=== PATIENT | female | born 1975 | race Caucasian/White ===

== ENCOUNTER 2016-07-09 12:15 | Inpatient (IN) | payer MEDICARE, MEDICAID ==
[~2016-07-09] VITALS: Ht 152.4 cm; Wt 55.9 kg
[~2016-07-09 12:15] MED LIST: DOCU-30 PO; ERTA1VIA IM; ERTA1VIA IV; ESZO3TAB9 PO; FERR325T16 PO; GABA300C10 PO; HYDR-3307 PO; HYDR2TAB13 PO; LEVE500T53 PO; LEVE500V6 PO; LORA-446 PO; METR500T PO; OXYC10TA32 PO; POTA20TA14 PO; PROM25TA10 PO; SULF1TAB3 PO; VANC1VIA3 PO
[2016-07-09] MEDS ORDERED: SODIUM CHLORIDE 0.9% 1,000ML IVBOLUS ONE ×2 (14:00→16:30)
[2016-07-09] MEDS ORDERED: ONDANSETRON 2MG/ML, 2ML IVPush ONE (14:00)
[2016-07-09] MEDS ORDERED: SODIUM CHLORIDE FLUSH 10ML SYR IVF ONE (14:00)
[2016-07-09] MEDS ORDERED: FAMOTIDINE 20 MG/2 ML IVP ONE (14:00)
[2016-07-09] MEDS ORDERED: ONDANSETRON 2MG/ML, 2ML ONE (14:21)
[2016-07-09] MEDS ORDERED: HYDROmorphone 1 MG/ML, 1ML ONE ×2 (14:21→14:59)
[2016-07-09] MEDS ORDERED: FAMOTIDINE 20 MG/2 ML ONE (14:21)
[2016-07-09] MEDS: HYDROmorphone 1 MG/ML, 1ML IVPush PRN ×2 (14:24→15:09)
[2016-07-09 14:41] LABS: ASPARTATE AMINO TRANSFERASE 9 U/L (15-37); BLOOD UREA NITROGEN 11 mg/dL (7-18)
[2016-07-09] MEDS ORDERED: OMNIPAQUE 350 MG/ML, 100ML BOTTLE ONE (15:54)
[2016-07-09] MEDS ORDERED: POTASSIUM CHLORIDE 40 MEQ in SODIUM CHLORIDE 0.9% 500 ML IV ONE (16:30)
[2016-07-09] MEDS ORDERED: ONDANSETRON 2MG/ML, 2ML IVP PRN (17:00)
[2016-07-09] MEDS ORDERED: ACETAMINOPHEN 325 MG TABLET PO PRN (17:00)
[2016-07-09 17:26] VITALS: BP 129/82
[2016-07-09] MEDS ORDERED: KETOROLAC 30 MG/1 ML IVPush PRN (18:00)
[2016-07-09] MEDS: ENOXAPARIN 40 MG/0.4 ML SQ SCH (18:00)
[2016-07-09] MEDS ORDERED: HYDROmorphone 1 MG/ML, 1ML IV ONE (18:45)
[2016-07-09] MEDS: FAMOTIDINE 20 MG/2 ML IV SCH (20:00)
[2016-07-09] MEDS: LEVETIRACETAM 500 MG TABLET PO SCH (20:00)
[2016-07-09] MEDS: GABAPENTIN 300 MG CAPSULE PO SCH (20:00)
[2016-07-09] MEDS: D5%-0.45NACL+KCL 20MEQ 1,000 ML IV SCH (20:15)
[2016-07-09] MEDS: PROMETHAZINE 25 MG/ML, 1ML IM PRN (20:15)
[2016-07-09 20:17] VITALS: BP 104/68
[2016-07-09 20:21] VITALS: BP 104/68
[2016-07-09] MEDS ORDERED: OXYC5TAB3 PO (21:07)
[2016-07-09] MEDS ORDERED: ZOLP5TAB PO (21:07)
[2016-07-09] MEDS ORDERED: OXYcodone IR 5MG TABLET PO PRN (21:30)
[2016-07-09] MEDS: ZOLPIDEM 5MG TABLET PO PRN (22:32)
[2016-07-10 02:04] VITALS: BP 114/77
[2016-07-10] MEDS: PROMETHAZINE 25 MG/ML, 1ML IM PRN ×3 (05:25→23:16)
[2016-07-10] MEDS: D5%-0.45NACL+KCL 20MEQ 1,000 ML IV SCH ×3 (05:25→22:54)
[2016-07-10 05:33] LABS: BLOOD UREA NITROGEN 4 mg/dL (7-18)
[2016-07-10] MEDS ORDERED: POTASSIUM CHLORIDE 40 MEQ in SODIUM CHLORIDE 0.9% 500 ML IV ONE (08:30)
[2016-07-10 08:36] VITALS: BP 104/71
[2016-07-10] MEDS: FAMOTIDINE 20 MG/2 ML IV SCH ×2 (09:42→20:52)
[2016-07-10] MEDS: GABAPENTIN 300 MG CAPSULE PO SCH ×3 (09:43→20:52)
[2016-07-10] MEDS: LEVETIRACETAM 500 MG TABLET PO SCH ×2 (09:43→20:52)
[2016-07-10] MEDS: morphine SULFATE 10 MG/ML, 1ML IVPush PRN ×3 (10:44→22:54)
[2016-07-10 14:20] VITALS: BP 101/70
[2016-07-10 17:52] VITALS: BP 94/61
[2016-07-10] MEDS: ENOXAPARIN 40 MG/0.4 ML SQ SCH (18:44)
[2016-07-10 19:14] VITALS: BP 95/63
[2016-07-10] MEDS: POTASSIUM CHLORIDE 20 MEQ TAB.ER.PRT PO SCH (20:52)
[2016-07-10] MEDS: ZOLPIDEM 5MG TABLET PO PRN (22:54)
[2016-07-11 02:47] VITALS: BP 89/59
[2016-07-11] MEDS: morphine SULFATE 10 MG/ML, 1ML IVPush PRN ×4 (04:46→17:18)
[2016-07-11] MEDS: PROMETHAZINE 25 MG/ML, 1ML IM PRN ×3 (05:57→17:01)
[2016-07-11] MEDS: D5%-0.45NACL+KCL 20MEQ 1,000 ML IV SCH ×2 (06:30→12:15)
[2016-07-11 06:31] LABS: BLOOD UREA NITROGEN 3 mg/dL (7-18)
[2016-07-11 06:47] VITALS: BP 91/60
[2016-07-11] MEDS: POTASSIUM CHLORIDE 20 MEQ TAB.ER.PRT PO SCH (09:25)
[2016-07-11] MEDS: FAMOTIDINE 20 MG/2 ML IV SCH (09:25)
[2016-07-11] MEDS: LEVETIRACETAM 500 MG TABLET PO SCH (09:25)
[2016-07-11] MEDS: GABAPENTIN 300 MG CAPSULE PO SCH ×2 (09:25→17:10)
[2016-07-11 11:00] VITALS: BP 106/65
[2016-07-11 12:07] VITALS: BP 91/61
[2016-07-11] MEDS: ENOXAPARIN 40 MG/0.4 ML SQ SCH (16:47)
== END 2016-07-11 18:27 | disposition home or self-care (01) | DRG 392 ==
LOC: ED 14:39 → UNDOADMOB 16:21 → INTOOBSV 16:21 → EDIP 16:21 → 4WST 17:05 → OBSVTOIN 07-10 12:03 → 3NE 07-10 17:44
PROVIDERS: ADMIT Hospitalist; ATTEND Hospitalist
DX: R19.7 Diarrhea, unspecified (principal); E44.1 Mild protein-calorie malnutrition; K86.1 Other chronic pancreatitis; I38 Endocarditis, valve unspecified; E87.1 Hypo-osmolality and hyponatremia; E87.6 Hypokalemia; G40.909 Epilepsy, unspecified, not intractable, without status epilepticus; D63.8 Anemia in other chronic diseases classified elsewhere; Z68.24 Body mass index [BMI] 24.0-24.9, adult; Z88.5 Allergy status to narcotic agent; Z91.14 Patient's other noncompliance with medication regimen; Z76.5 Malingerer [conscious simulation]; Z90.710 Acquired absence of both cervix and uterus; E86.0 Dehydration; K86.81 Exocrine pancreatic insufficiency
CPT/HCPCS: 36415; 74177; 80048; 80053; 81003; 83690; 83735; 85025; 87040; 87324; 96361; 96374; 96375; G0378; J1170; J1885; J2405; J2550; J3480; Q9967; J2270; J7030; J7040; S0028

== ENCOUNTER 2016-08-01 16:16 | Emergency (ER) | payer MEDICARE, MEDICAID ==
[~2016-08-01] VITALS: Ht 152.4 cm; Wt 54.4 kg
[~2016-08-01 16:16] MED LIST changes: +OXYC5TAB3 PO; +ZOLP5TAB PO
[2016-08-01] MEDS ORDERED: ONDANSETRON 2MG/ML, 2ML IVPush ONE (17:00)
[2016-08-01] MEDS ORDERED: SODIUM CHLORIDE FLUSH 10ML SYR IVF ONE (17:00)
[2016-08-01] MEDS ORDERED: KETOROLAC 30 MG/1 ML IVPush ONE (17:00)
[2016-08-01] MEDS ORDERED: HYDROmorphone 1 MG/ML, 1ML IVPush PRN (17:00)
[2016-08-01] MEDS ORDERED: ONDANSETRON 2MG/ML, 2ML ONE (17:01)
[2016-08-01] MEDS ORDERED: HYDROmorphone 1 MG/ML, 1ML ONE (17:01)
[2016-08-01] MEDS ORDERED: KETOROLAC 30 MG/1 ML ONE (17:01)
[2016-08-01 17:29] LABS: BLOOD UREA NITROGEN 13 mg/dL (7-18); C-REACTIVE PROTEIN, QUANT 0.95 mg/dL (0.02-0.49)
[2016-08-01 18:18] VITALS: BP 112/68
== END 2016-08-01 18:20 | disposition home or self-care (01) ==
LOC: ED 16:43
DX: L03.113 Cellulitis of right upper limb (principal); Z88.6 Allergy status to analgesic agent
CPT/HCPCS: 36415; 73080; 80048; 82040; 85025; 85651; 86140; 96374; 96375; 99285; J1170; J1885; J2405